=== PATIENT | female | born 1970 | race Caucasian/White ===

== ENCOUNTER 2017-05-22 07:44 | Emergency (ER) | payer OTHER ==
[2017-05-22] MEDS ORDERED: Sulfamethox/Trimethoprim DS 800/160* TAB PO ONE (08:08)
[2017-05-22] MEDS ORDERED: Ibuprofen TAB* 800 MG PO ONE (08:09)
[2017-05-22 08:13] VITALS: BP 173/107
--- NOTE | 2017-05-22 17:42 | ED ---
Teresa Washington Thomas, scribed for Willian Perea MD on 05/22/17 at 0809 . Skin Complaint - HPI Summary HPI Summary: The pt is a 47 y/o F presenting to the ED c/o an induration to her R posterior thigh s/p a suspected insect bite three days ago. The pain is rated 3/10. The pain is aggravated and alleviated by nothing. The patient has not treated the pain with anything [employer]. Pt denies any other complaints at this time. PMHx: HTN. PSHx: lap band, hemorrhoids surgery (10 years ago). SHx: occasional smoking, occasional alcohol use, occasional marijuana use. FHx: HTN, arthritis, and CA. - History of Current Complaint Chief Complaint: EDRashSkinAbscess Time Seen by Provider: 05/22/17 08:00 Stated Complaint: ABSCESS Hx Obtained From: Patient Onset/Duration: Started Days Ago - 3 days, Still Present, Resolved - somewhat improved since onset Timing: Constant Current Severity: Mild Pain Intensity: 3 Pain Scale Used: 0-10 Numeric Skin Location: Other: - Posterior R thigh Character: Pain Aggravating Symptom(s): Nothing Alleviating Symptom(s): Nothing Related History: Insect Bite/Sting - suspected PMH/Surg Hx/FS Hx/Imm Hx Previously Healthy: No Endocrine/Hematology History: Denies: Hx Diabetes Cardiovascular History: Reports: Hx Hypertension - Surgical History Surgery Procedure, Year, and Place: Lap band surgery, hemorrhoid surgery (10 years ago) Infectious Disease History: Denies: Traveled Outside the [place] in Last 30 Days - Family History Known Family History: Positive: Hypertension, Other - POS: DM, CA - Social History Alcohol Use: Occasionally Hx Substance Use: Yes Substance Use Type: Reports: Marijuana Hx Tobacco Use: Yes Smoking Status (MU): Smoker, Current Status Unknown Review of Systems Constitutional: Negative Negative: Fever Positive: Other - POS: induration to the patient's R posterior thigh s/p suspected insect bite three days ago All Other Systems Reviewed And Are Negative: Yes Physical Exam - Summary Physical Exam Summary: VITAL SIGNS: Reviewed. GENERAL: ~Patient is an obese female who is lying comfortable in the stretcher. ~Patient is not in any acute respiratory distress. HEAD AND FACE: No signs of trauma. ~No ecchymosis, hematomas or skull depressions. No sinus tenderness. EYES: PERRLA, EOMI x 2, No injected conjunctiva, no nystagmus. EARS: Hearing grossly intact. Ear canals and tympanic membranes are within normal limits. MOUTH: Oropharynx within normal limits. NECK: Supple, trachea is midline, no adenopathy, no JVD, no carotid bruit, no c- spine tenderness, neck with full ROM. CHEST: Symmetric, no tenderness at palpation LUNGS: Clear to auscultation bilaterally. No wheezing or crackles. CVS: Regular rate and rhythm, S1 and S2 present, no murmurs or gallops appreciated. ABDOMEN: Soft, non-tender. No signs of distention. No rebound no guarding, and no masses palpated. Bowel sounds are normal. EXTREMITIES: FROM in all major joints, no edema, no cyanosis or clubbing. NEURO: Alert and oriented x 3. No acute neurological deficits. Speech is normal and follows commands. SKIN: On her R thigh, there is a 4cm x 4cm area of skin induration. Dry and warm Triage Information Reviewed: Yes Vital Signs On Initial Exam: Initial Vitals Temp Pulse Resp BP Pulse Ox 97.5 F 83 15 169/109 97 05/22/17 07:48 05/22/17 07:48 05/22/17 07:48 05/22/17 07:48 05/22/17 07:48 Vital Signs Reviewed: Yes Diagnostics - Vital Signs Vital Signs Temp Pulse Resp BP Pulse Ox 05/22/17 07:48 97.5 F 83 15 169/109 97 - Laboratory Lab Statement: Any lab studies that have been ordered have been reviewed, and results considered in the medical decision making process. Course/Dx - Course Assessment/Plan: The pt is a 47 y/o F presenting to the ED c/o an induration to her R posterior thigh s/p a suspected insect bite three days ago. The pain is rated 3/10. The pain is aggravated and alleviated by nothing. The patient has not treated the pain with anything [employer]. Pt denies any other complaints at this time. PMHx: HTN. PSHx: lap band, hemorrhoids surgery (10 years ago). SHx: occasional smoking, occasional alcohol use, occasional marijuana use. FHx: HTN, arthritis, and CA. It seems that the patient is dealing with a small area of cellulitis. There is no abscess formation; therefore, the patient will be placed on Bactrim. The patient is hemodynamically stable and A&Ox3 and she will be discharged home with follow up from her PCP. I discussed all the findings and test results with the patient. Patient was instructed to return to the emergency room immediately if any of the symptoms return or worsens. Plan of care was discussed with the patient and understands and agrees. All questions were answered at patient satisfaction. There were no further complaints or concerns. - Differential Diagnoses - Skin Complaint Differential Diagnoses: Abscess, Cellulitis, Eczema, Impetigo, Local Allergic Reaction, MRSA, Urticaria - Diagnoses Provider Diagnoses: Cellulitis Discharge - Discharge Plan Condition: Stable Disposition: HOME Prescriptions: Sulfamethox/Trimethoprim DS* [Bactrim DS 800/160 TAB*] 1 tab PO BID #10 tab Patient Education Materials: Cellulitis (ED) Referrals: Non Staff,Doctor [Primary Care Provider] - Additional Instructions: As you are leaving [place] soon, follow up with your primary care physician in three days once you return home. The documentation as recorded by the Teresa zavala Thomas accurately reflects the service I personally performed and the decisions made by me, Willian Perea MD.
== END 2017-05-22 08:15 | disposition home or self-care (01) ==
LOC: ED 07:44
DX: L03.90 Cellulitis, unspecified (principal)
CPT/HCPCS: 99282; A9270-GY